=== PATIENT | female | born 2000 | race Caucasian/White ===

== ENCOUNTER 2023-12-31 21:48 | Inpatient (IN) | payer OTHER ==
[2023-12-31] MEDS ORDERED: hydrALAZINE 20 MG/ML VIAL SLOW IVP PRN (22:55)
[2024-01-01 00:53] LABS: Bilirubin Neg (Negative); Blood, Urine Negative (Negative); Clarity Slightly Cloudy (Clear); Glucose, Urine (Dipstick) Normal (Negative); Ketone, Urine Negative (Negative); Leukocyte 25 (Negative); Nitrite Negative (Negative); Protein, Urine (Dipstick) 15 mg/dl (Neg-Trace); Urobilinogen Normal mg/dL (Less than 2); pH, Urine 6.5 (5.0-9.0)
[2024-01-01 01:01] LABS: CAUTI Indications for Culture Pelvic or flank pain; RBC/HPF 0-3 HPF (0-3); Squamous Epithelial 0-3 HPF (0-3)
[2024-01-01 01:02] LABS: Bacteria/HPF 2+ HPF (None Seen)
[2024-01-01 01:03] LABS: Urine Culture Reflex No No
[2024-01-01] MEDS ORDERED: Lidocaine 1% (PF) 30 ML VIAL SC PRN (01:22)
[2024-01-01] MEDS ORDERED: Misoprostol 200 MCG TAB PR PRN (01:22)
[2024-01-01] MEDS ORDERED: Promethazine HCl 25 MG/ML VIAL IM PRN (01:22)
[2024-01-01] MEDS ORDERED: Methylergonovine 0.2 MG/ML VIAL IM PRN (01:22)
[2024-01-01] MEDS ORDERED: Ibuprofen 800 MG TAB PO PRN (01:22)
[2024-01-01] MEDS ORDERED: Carboprost 250 MCG/ML AMP IM PRN (01:22)
[2024-01-01] MEDS ORDERED: Tranexamic Acid 1,000 MG/10 ML VIAL IVP PRN (01:22)
[2024-01-01] MEDS ORDERED: Oxytocin 30 units/NS 500 ML 500 ML IV SCH (01:30)
[2024-01-01 01:32] VITALS: BMI 33.1
[2024-01-01] MEDS: Lactated Ringer's 1,000 ML IV SCH (01:38)
[2024-01-01] MEDS: cefTRIAXone\\ROCEPHIN 1 GM in Sodium Chloride 0.9% 100 ML IVPB SCH (01:42)
[2024-01-01] MEDS: NIFEdipine 10 MG CAP PO SCH ×2 (01:42→12:30)
[2024-01-01] MEDS ORDERED: Terbutaline Sulfate 1 MG/ML VIAL ONE (03:00)
[2024-01-01] MEDS: Betamet Acet/Betamet Na Ph 30 MG/5 ML VIAL IM SCH (03:04)
[2024-01-01 03:07] LABS: #Basophils 0.03 10x3/uL (0.0-0.2); #Eosinphils 0.06 10x3/uL (0.0-0.5); #Monocytes 0.81 10x3/uL (0.0-1.1); #Neutrophils 6.66 10x3/uL (1.5-8.4); %Basophils 0.3 % (0.0-2.0); %Eosinophils 0.6 % (0.0-6.0); %Lymphocytes 22.2 % (18.0-47.0); %Monocytes 8.2 % (0.0-10.0); %Neutrophils 67.8 % (40.0-75.0); ALT (SGPT) 11 U/L (8-55); AST (SGOT) 15 U/L (5-34); Albumin 2.9 g/dL (3.5-5.0); Alkaline Phosphatase 148 U/L (40-110); Anion Gap 19 mmol/L (10-20); BUN (Urea Nitrogen) 5 mg/dL (7.0-18.7); Bilirubin, Total 0.3 mg/dL (0.2-1.2); Calc. Creatinine Clearance 186 mL/min (70-130); Carbon Dioxide 16 mmol/L (22-29); Chloride 105 mmol/L (98-107); Estimated GFR 127; Globulin 3.3 g/dL (2.4-3.5); Glucose 66 mg/dL (70-105); HBsAg Index 0.16 S/CO (0-0.99); HIV (1/2) Antibody/Antigen Non-Reactive (NonReactive); HIV 1/2 INDEX 0.13 S/CO (<1.00); Hematocrit 34.1 % (34.9-44.5); Hemoglobin 11.7 g/dL (12.0-15.5); Hep B Surf Ag - L&D Non-Reactive S/CO (NonReactive); Mean Corpuscular HGB CONC 34.3 g/dL (32.0-36.0); Mean Corpuscular Hemoglobin 30.2 pg (27.0-33.0); Mean Corpuscular Volume 87.9 fL (81.6-98.3); Mean Platelet Volume 11.2 fL (7.4-10.4); Platelet Count 284 10x3/uL (150-450); Potassium 3.8 mmol/L (3.5-5.1); Protein, Total 6.2 g/dL (6.0-8.3); RBC Distribution Width 12.8 % (11.5-14.5); Red Blood Cell (RBC) Count 3.88 10x6/uL (3.90-5.03); Sodium 136 mmol/L (136-145); Syphilis Antibody Nonreactive (Nonreactive); Syphilis Antibody Index 0.06 S/CO (<1.00 Non-Reactive); White Blood Cell (WBC) Count 9.8 10x3/uL (3.5-10.5)
[2024-01-01] MEDS ORDERED: Dextrose 5% in Water 1,000 ML IV PRN (03:12)
[2024-01-01] MEDS ORDERED: Glucagon 1 MG/ML KIT IM PRN (03:12)
[2024-01-01] MEDS ORDERED: Dextrose 50% Abboject 50 ML SYRINGE SLOW IVP PRN (03:12)
[2024-01-01] MEDS: Terbutaline Sulfate 1 MG/ML VIAL SC SCH (03:18)
[2024-01-01] MEDS: Morphine 4 MG/ML VIAL SLOW IVP SCH (03:36)
[2024-01-01] MEDS ORDERED: Terbutaline Sulfate 1 MG/ML VIAL SC SCH (04:00)
[2024-01-01] MEDS: Ondansetron PF 4 MG/2 ML Vial IVP PRN (04:23)
[2024-01-01] MEDS: NIFEdipine 10 MG CAP PO PRN (08:32)
[2024-01-01] MEDS: metFORMIN 500 MG TAB PO SCH ×2 (08:32→16:32)
[2024-01-01] MEDS ORDERED: NIFEdipine 10 MG CAP PO PRN (09:22)
[2024-01-01] MEDS: HumaLOG 300 UNITS/3 ML VIAL SC PRN (12:10)
[2024-01-01] MEDS: Acetaminophen 325 MG TAB PO PRN (16:35)
[2024-01-01] MEDS: fentaNYL 50 mcg/mL 1 mL Vial SLOW IVP PRN (20:06)
[2024-01-02 00:18] LABS: Group B Streptococcus by PCR Not Detected (NotDetected)
[2024-01-02] MEDS: metFORMIN 500 MG TAB PO SCH (08:10)
[2024-01-02] MEDS ORDERED: Nitrofurantoin Monohyd/M-Cryst 100 MG CAP PO SCH (09:00)
[2024-01-02] MEDS ORDERED: Acetaminophen 500 MG TAB PO PRN (23:22)
[2024-01-02] MEDS: Ondansetron HCl/PF 8 MG, Admixture Fee 1 EACH in Sodium Chloride 0.9% 50 ML IVPB SCH (23:34)
[2024-01-03 00:15] LABS: #Basophils 0.03 10x3/uL (0.0-0.2); #Eosinphils 0.01 10x3/uL (0.0-0.5); #Monocytes 1.22 10x3/uL (0.0-1.1); #Neutrophils 8.74 10x3/uL (1.5-8.4); %Basophils 0.2 % (0.0-2.0); %Eosinophils 0.1 % (0.0-6.0); %Lymphocytes 16.3 % (18.0-47.0); %Neutrophils 71.4 % (40.0-75.0); Hematocrit 29.3 % (34.9-44.5); Hemoglobin 10.2 g/dL (12.0-15.5); Mean Corpuscular HGB CONC 34.8 g/dL (32.0-36.0); Mean Corpuscular Hemoglobin 30.6 pg (27.0-33.0); Mean Platelet Volume 10.9 fL (7.4-10.4); Platelet Count 251 10x3/uL (150-450); RBC Distribution Width 12.8 % (11.5-14.5); Red Blood Cell (RBC) Count 3.33 10x6/uL (3.90-5.03); White Blood Cell (WBC) Count 12.3 10x3/uL (3.5-10.5)
[2024-01-03 00:34] LABS: ALT (SGPT) 8 U/L (8-55); AST (SGOT) 10 U/L (5-34); Albumin 2.6 g/dL (3.5-5.0); Alkaline Phosphatase 125 U/L (40-110); Anion Gap 16 mmol/L (10-20); BUN (Urea Nitrogen) 5 mg/dL (7.0-18.7); Bilirubin, Total 0.2 mg/dL (0.2-1.2); Calc. Creatinine Clearance 180 mL/min (70-130); Calcium 8.6 mg/dL (7.8-10.44); Carbon Dioxide 16 mmol/L (22-29); Chloride 108 mmol/L (98-107); Estimated GFR 126; Globulin 3.2 g/dL (2.4-3.5); Glucose 119 mg/dL (70-105); Potassium 3.3 mmol/L (3.5-5.1); Protein, Total 5.8 g/dL (6.0-8.3); Sodium 137 mmol/L (136-145)
[2024-01-03] MEDS: cefTRIAXone\\ROCEPHIN 1 GM in Sodium Chloride 0.9% 100 ML IVPB SCH (01:56)
[2024-01-03] MEDS: Potassium Chloride 10 MEQ in Premix 1 BAG IVPB SCH (02:49)
[2024-01-03] MEDS ORDERED: Cephalexin 500 MG CAP PO SCH ×2 (09:00→23:59)
== END 2024-01-03 10:52 | disposition home or self-care (01) | DRG 832 ==
LOC: CSHLD/OP 21:48 → CSHLD 01-01 01:23 → OBSVTOIN 01-02 15:37
PROVIDERS: ADMIT Family Medicine; ATTEND Family Medicine
PROC: 4A0HXCZ Measurement of Products of Conception, Cardiac Rate, External Approach (ICD-10-PCS; principal; 2024-01-03)
DX: O60.03 Preterm labor without delivery, third trimester (principal); O23.43 Unspecified infection of urinary tract in pregnancy, third trimester; O24.415 Gestational diabetes mellitus in pregnancy, controlled by oral hypoglycemic drugs; Z3A.33 33 weeks gestation of pregnancy; Z79.84 Long term (current) use of oral hypoglycemic drugs; Z79.899 Other long term (current) drug therapy; Z79.82 Long term (current) use of aspirin
CPT/HCPCS: 36415; 36416; 71045; 76815; 76819; 80053; 81001; 85025; 86780; 86850; 86900; 86901; 87340; 87389; 87480; 87510; 87653; 87660; 93970; 99285; J0696; J0702; J1815; J2270; J2405; J3010; J3105; J3480; J3490